=== PATIENT | female | born 1970 | race African-American/Black ===

== ENCOUNTER 2019-06-13 17:36 | Emergency (ER) | payer OTHER ==
[2019-06-13] MEDS ORDERED: TETRACAINE HCL 0.5% OPH SOLN 4 ML OU ONE (17:48)
--- NOTE | 2019-06-13 17:51 | ER Document Report ---
ED Medical Screen (RME) - General Chief Complaint: Eye Pain Stated Complaint: EYE PAIN Time Seen by Provider: 06/13/19 17:43 Primary Care Provider: RJ DELEON [Primary Care Provider] - Follow up as needed - [facility] Notes: 06/13/19 17:50 49-year-old female to the emergency department with complaints of bilateral eye pain that has gotten progressively worse today. She states that she awoke this morning with some eye pain and so she decided to go back to sleep. She states when she woke again she had significant eye pain and felt like she could not open her eyes. She states that she has photophobia with it. She states she has uncontrollable tearing with it. She states that is better if she keeps her eyes closed. She states that she typically wears glasses but last night she wore a pair fashion contacts to color her eyes. She states she did not sleep in them. I performed a brief medical screening exam on the patient determined that she will need further evaluation and management by me inside provider. I placed initial orders to help desk intern in expediting her care today. - Related Data Allergies/Adverse Reactions: No Known Drug Allergies Allergy (Verified 09/10/12 15:32) Past Medical History Past Surgical History: Reports: Hx Section - x3 Physical Exam - Vital signs Vitals: Temp Pulse Resp BP Pulse Ox 98.0 F 86 16 156/96 H 99 06/13/19 17:40 06/13/19 17:40 06/13/19 17:40 06/13/19 17:40 06/13/19 17:40 Course - Vital Signs Vital signs: Temp Pulse Resp BP Pulse Ox 98.0 F 86 16 156/96 H 99 06/13/19 17:40 06/13/19 17:40 06/13/19 17:40 06/13/19 17:40 06/13/19 17:40 Doctor's Discharge - Discharge Referrals: RJ DELEON [Primary Care Provider] - Follow up as needed
[2019-06-13] MEDS ORDERED: CIPROFLOXACIN HCL 0.3% OPH SOLN 2.5 ML OU ONE (21:36)
[2019-06-13] MEDS ORDERED: KETOROLAC TROMETHAMINE 0.45% 4 DROP/0.4 ML DROPERETTE OU ONE (21:37)
[2019-06-13] MEDS ORDERED: MINERAL OIL/PETROLATUM,WHITE OPH OINT 3.5 GM OU ONE (21:43)
[2019-06-13] MEDS ORDERED: HYDROCODONE/ACETAMINOPHEN 5-325 MG (6 TAB/ER DISP) PO PRN (21:43)
--- NOTE | 2019-06-13 22:00 | ER Document Report ---
Entered by LYNNETTE HOLLINGSWORTH SCRIBE 06/13/192110 Acting as scribe for:LUIS SHETTY IV, MD ED Eye Complaint - General Chief Complaint: Eye Pain Stated Complaint: EYE PAIN Time Seen by Provider: 06/13/19 17:43 Primary Care Provider: XI MOORE DO [ACTIVE STAFF] - 06/15/19 RJ DELEON [NO LOCAL MD] - Follow up as needed Mode of Arrival: Ambulatory Information source: Patient Notes: This 49 year old female patient presents to the ED today with complaints of bilateral eye pain and redness that began sometime this morning prior to arri rich. Patient states that when she woke up this morning initially she did not have any pain, but when she woke up a second time, she had blurry vision, pain, photophobia, and tearing. Patient states that the pain was better when she closed her eyes. Patient states that she usually wears glasses, but decided to wear fashion contact lenses to change her eye color last night. Patient notes that she has worn contact lenses before, but that yesterday was the first time using that brand of lenses. Patient states that she did not sleep with the contacts in her eyes. TRAVEL OUTSIDE OF THE [place] IN LAST 30 DAYS: No - Related Data Allergies/Adverse Reactions: No Known Drug Allergies Allergy (Verified 09/10/12 15:32) Past Medical History - General Information source: Patient - Social History Smoking Status: Never Smoker Cigarette use (# per day): No Chew tobacco use (# tins/day): No Smoking Education Provided: No Frequency of alcohol use: Occasional Drug Abuse: None Family History: Reviewed & Not Pertinent, CAD, DM, Hyperlipidemia, Hypertension Patient has suicidal ideation: No Patient has homicidal ideation: No Past Surgical History: Reports: Hx Section - x3 Review of Systems - Review of Systems Constitutional: No symptoms reported EENT: See HPI, Eye pain, Blurred vision, Tearing, Other - Photophobia Cardiovascular: No symptoms reported Respiratory: No symptoms reported Gastrointestinal: No symptoms reported Genitourinary: No symptoms reported Female Genitourinary: No symptoms reported Musculoskeletal: No symptoms reported Skin: No symptoms reported Hematologic/Lymphatic: No symptoms reported Neurological/Psychological: No symptoms reported -: Yes All other systems reviewed and negative Physical Exam - Vital signs Vitals: Temp Pulse Resp BP Pulse Ox 98.0 F 86 16 156/96 H 99 06/13/19 17:40 06/13/19 17:40 06/13/19 17:40 06/13/19 17:40 06/13/19 17:40 - General General appearance: Alert - HEENT Head: Normocephalic, Atraumatic Eyes: Normal, Other - No cell, flare, or hyphema present bilaterally. Negative [place]'s bilaterally. Ocular movements intact bilaterally. Conjunctiva: Injected - Bilaterally Cornea: Flourescein stain uptake - Right eye Pupils: PERRL - Respiratory Respiratory status: No respiratory distress Chest status: Nontender Breath sounds: Normal Chest palpation: Normal - Cardiovascular Rhythm: Regular Heart sounds: Normal auscultation Murmur: No - Abdominal Inspection: Normal Distension: No distension Bowel sounds: Normal Tenderness: Nontender Organomegaly: No organomegaly - Back Back: Normal, Nontender - Extremities General upper extremity: Normal inspection General lower extremity: Normal inspection - Neurological Neuro grossly intact: Yes - Psychological Associated symptoms: Normal affect, Normal mood - Skin Skin Temperature: Warm Skin Moisture: Dry Skin Color: Normal Course - Re-evaluation Re-evalutation: 06/13/19 21:50 This MD performed a slit lamp exam using tetracaine and floor seen. The exam was significant for a regular "wavy" appearance and positive fluorescein uptake of the right cornea in a stippling pattern. Negative Marcelo's bilaterally. Results of ED MSE and diagnosis discussed with patient. All questions answered prior to discharge. When asked if everything about the patient's visit to the ED today was explained in a manner in which she understood, patient answered in the affirmative. Emergency signs and symptoms, reasons to return to the ED discussed with the patient. - Vital Signs Vital signs: Temp Pulse Resp BP Pulse Ox 98.0 F 86 16 156/96 H 99 06/13/19 17:40 06/13/19 17:40 06/13/19 17:40 06/13/19 17:40 06/13/19 17:40 Discharge - Discharge Clinical Impression: Corneal abrasion due to contact lens Qualifiers: Laterality: right Qualified Code(s): H18.821 - Corneal disorder due to contact lens, right eye Condition: Good Disposition: HOME, SELF-CARE Additional Instructions: Return to the Emergency Department without delay if any worse. HOME CARE INSTRUCTIONS & INFORMATION: Thank you for choosing us for your medical needs. We hope you're satisfied with the care you received. After you leave, you must properly care for your problem and, at the same time, observe its progress. Any condition can change. Some illnesses can change rapidly over hours or days. If your condition worsens, return to the Emergency Department or see your physician promptly. ABOUT YOUR X-RAYS AND EKG'S: If you had an EKG or X-rays taken, they have been read by the Emergency Physician. The X-rays and EKG's will also be read by a Radiologist or Rail Splitter within 24 hours. If discrepancies are noted, you will be notified by telephone. Please be certain the ED has a correct telephone number & address where you can be reached. Also, realize that some fractures or abnormalities do not show up on initial X-rays. If your symptoms continue, see your physician. ABOUT YOUR LABORATORY TEST: If you had laboratory tests, the results have been reviewed by the Emergency Physician. Some test results (for example cultures) may not be available for several days. You will be contacted if any test result shows you need additional treatment. Please be certain the ED has a correct telephone number and address where you can be reached. ABOUT YOUR MEDICATIONS: You will receive instructions on how to take your medicine on the prescription label you receive. Additional information may be provided by the Pharmacy. If you have questions afterwards, call the ED for clarification or further instructions. Some prescribed medications may cause drowsiness. Do not perform tasks such as driving a car or operating machinery without consulting your Pharmacist. If you feel you need a refill of pain medication, your condition will need re-evaluation. Please do not call for a refill of any medication. ABOUT YOUR SIGNATURE: Signature of this document acknowledges to followin. Understanding that you received emergency treatment and that you may be released before al medical problems are known or treated. Please be certain the ED has a correct phone number & address where you can be reached. 2. Acknowledgement that you will arrange for follow-up care as recommended. 3. Authorization for the Emergency Physician to provide information to your follow-up Physician in order to maximize your care. AT ANY TIME, IF YOUR SYMPTOMS CHANGE SIGNIFICANTLY OR WORSEN OR YOU DEVELOP NEW SYMPTOMS, RETURN TO THE EMERGENCY DEPARTMENT IMMEDIATELY FOR RE-EVALUATION. OUR GOAL IS TO PROVIDE EXCELLENT MEDICAL CARE! WE HOPE THAT WE HAVE MET YOUR EXPECTATIONS DURING YOUR EMERGENCY DEPARTMENT VISIT AND THAT YOU FEEL YOU HAVE RECEIVED EXCELLENT CARE! Prescriptions: Ketorolac Tromethamine [Acular Ls] 1 drop OU PRN PRN 4 Days #5 ml PRN Reason: Referrals: PANCHO,NO [NO LOCAL MD] - Follow up as needed XI MOORE DO [ACTIVE STAFF] - 06/15/19 I personally performed the services described in the documentation, reviewed and edited the documentation which was dictated to the scribe in my presence, and it accurately records my words and actions.
[2019-06-13 23:11] VITALS: BP 129/86
== END 2019-06-13 23:05 | disposition home or self-care (01) ==
LOC: ER 17:36
DX: H18.821 Corneal disorder due to contact lens, right eye (principal); H57.13 Ocular pain, bilateral
CPT/HCPCS: 99283; J3490 ×2

== ENCOUNTER 2020-03-01 08:32 | Emergency (ER) | payer OTHER ==
[2020-03-01 08:43] VITALS: BP 124/82
--- NOTE | 2020-03-01 10:17 | ER Document Report ---
ED Medical Screen (RME) - General Chief Complaint: Abdominal Pain Stated Complaint: CONSTIPATION Time Seen by Provider: 03/01/20 10:07 TRAVEL OUTSIDE OF THE [place] IN LAST 30 DAYS: No - HPI Notes: 03/01/20 10:15 50-year-old female with a history of constipation presents emergency room for abdominal pain that has been occurring for the last 5 days. Patient reports her last bowel movement was 5 days ago, she has since used enema suppository while taking daily Linzess for constipation without any bowel movement or passing any flatus. Patient states that she did have a blood clot, yesterday. Patient s tates she has urge to defecate but only blood came out. Reports she did have a colonoscopy done a year ago. They did find a couple polyps but that was removed. Denies any nausea vomiting, chest pain shortness of breath, fever or chills. Patient states she typically has a bowel movement daily. I have greeted and performed a rapid initial assessment of this patient. A comprehensive ED assessment and evaluation of the patient, analysis of test results and completion of the medical decision making process will be conducted by additional ED providers. PHYSICAL EXAMINATION: GENERAL: Well-appearing, well-nourished and in no acute distress. CV: s1, s2 regular LUNGS: No respiratory distress abd: distented, semi hard, tenderness in epigastric and LLQ abd pain, no cva tenderness appreciated bilaterally - Related Data Allergies/Adverse Reactions: acetaminophen [From Percocet] Allergy (Verified 03/01/20 10:07) No Known Drug Allergies Allergy (Verified 09/10/12 15:32) oxycodone [From Percocet] Allergy (Verified 03/01/20 10:07) Home Medications: montelukast. sertraline Past Medical History - Social History Chew tobacco use (# tins/day): No Frequency of alcohol use: Occasional Drug Abuse: None Past Surgical History: Reports: Hx Section - x3 Physical Exam - Vital signs Vitals: Temp Pulse BP Pulse Ox 98.5 F 98 124/82 97 03/01/20 08:42 03/01/20 08:42 03/01/20 08:42 03/01/20 08:42 Course - Vital Signs Vital signs: Temp Pulse Resp BP Pulse Ox 98.5 F 98 124/82 97 03/01/20 08:42 03/01/20 08:42 03/01/20 08:42 03/01/20 08:42
[2020-03-01 10:37] LABS: ABSOLUTE EOSINOPHILS # (AUTO) 0.1 10^3/uL (0.0-0.6); ABSOLUTE LYMPHOCYTES (AUTO) 1.6 10^3/uL (0.5-4.7); ABSOLUTE MONOCYTES (AUTO) 0.5 10^3/uL (0.1-1.4); ABSOLUTE NEUT (AUTO) 4.3 10^3/uL (1.7-8.2); BASOPHILS % (AUTO) 0.4 % (0-2); EOSINOPHILS % (AUTO) 1.4 % (0-6); HEMATOCRIT 40.4 % (36.0-47.0); HEMOGLOBIN 14.3 g/dL (12.0-15.5); LYMPHOCYTES % (AUTO) 24.3 % (13-45); MEAN CORPUSCULAR HEMOGLOBIN 31.5 pg (27.0-33.4); MEAN CORPUSCULAR HGB CONC 35.4 g/dL (32.0-36.0); MEAN CORPUSCULAR VOLUME 89 fl (80-97); MONOCYTES % (AUTO) 7.5 % (3-13); PLATELET COUNT 302 10^3/uL (150-450); RED BLOOD COUNT 4.53 10^6/uL (3.72-5.28); RED CELL DISTRIBUTION WIDTH 13.4 % (11.5-14.0); SEGMENTED NEUTROPHILS % (AUTO) 66.4 % (42-78); TOTAL CELLS COUNTED % (AUTO) 100 %; WHITE BLOOD COUNT 6.5 10^3/uL (4.0-10.5)
--- NOTE | 2020-03-01 11:00 | RADIOLOGY REPORT (SQ) ---
EXAM DESCRIPTION: ACUTE ABDOMEN SERIES IMAGES COMPLETED DATE/TIME: 03/01/2020 10:50 am REASON FOR STUDY: no bm or flatus x 5 days, fer blood x1d ago COMPARISON: None. NUMBER OF VIEWS: Three views. TECHNIQUE: Frontal chest, supine abdomen and upright/decubitus abdomen radiographic images acquired. LIMITATIONS: None. FINDINGS: CHEST: Lungs clear of infiltrates. FREE AIR: None. No abnormal gas collections. BOWEL GAS PATTERN: A few dilated loops of small bowel in the midabdomen with air-fluid levels. Stool in the rectum. CALCIFICATIONS: No suspicious calcifications. HARDWARE: None in the abdomen. SOFT TISSUES: No gross mass or suggestion of organomegaly. BONES: No acute fracture. No worrisome bone lesions. OTHER: No other significant finding. IMPRESSION: POSSIBLE DEVELOPING BOWEL OBSTRUCTION. CONSIDER FOLLOW-UP CT OF THE ABDOMEN AND PELVIS. TECHNICAL DOCUMENTATION: JOB ID: [id number] 2010 [employer]- All Rights Reserved Reading location - IP/workstation name: [email or web address]
[2020-03-01 11:03] LABS: ALBUMIN 4.7 g/dL (3.5-5.0); ALKALINE PHOSPHATASE 82 U/L (38-126); ANION GAP 9 (5-19); ASPARTATE AMINO TRANSFERASE 32 U/L (14-36); BILIRUBIN,DIRECT 0.2 mg/dL (0.0-0.4); BLOOD UREA NITROGEN 16 mg/dL (7-20); CARBON DIOXIDE 30 mmol/L (22-30); CHLORIDE 99 mmol/L (98-107); GLUCOSE 111 mg/dL (75-110); POTASSIUM 4.6 mmol/L (3.6-5.0); TOTAL PROTEIN 8.3 g/dL (6.3-8.2)
--- NOTE | 2020-03-01 13:17 | ER Document Report ---
ED General - General Chief Complaint: Abdominal Pain Stated Complaint: CONSTIPATION Time Seen by Provider: 03/01/20 10:07 Mode of Arrival: Ambulatory Information source: Patient Notes: 50-year-old female patient presenting to the emergency department chief complaint of abdominal pain and no bowel movement for the last 5 days. Patient reports chronic constipation, states that she usually takes Linzess. When she takes her Linzess she has a bowel movement daily. She reports a history of ir ritable bowel syndrome. She denies any nausea or vomiting. She states she has had bright red blood in the toilet after straining. She does have a history of hemorrhoids. She has had a x3, uterine fibroids removed and no other surgeries. Last oral intake was at 9 PM. Patient is passing gas. TRAVEL OUTSIDE OF THE [place] IN LAST 30 DAYS: No - Related Data Allergies/Adverse Reactions: No Known Drug Allergies Allergy (Verified 09/10/12 15:32) oxycodone [From Percocet] Allergy (Verified 03/01/20 10:07) Home Medications: montelukast. sertraline Past Medical History - General Information source: Patient - Social History Smoking Status: Never Smoker Chew tobacco use (# tins/day): No Frequency of alcohol use: Occasional Drug Abuse: None Family History: Reviewed & Not Pertinent, CAD, DM, Hyperlipidemia, Hypertension Patient has homicidal ideation: No GI Medical History: Reports: Hx Irritable Bowel Past Surgical History: Reports: Hx Section - x3 - Immunizations Immunizations up to date: Yes Review of Systems - Review of Systems Gastrointestinal: Abdominal pain, Constipation. denies: Nausea, Vomiting -: Yes All other systems reviewed and negative Physical Exam - Vital signs Vitals: Temp Pulse BP Pulse Ox 98.5 F 98 124/82 97 03/01/20 08:42 03/01/20 08:42 03/01/20 08:42 03/01/20 08:42 - Notes Notes: PHYSICAL EXAMINATION: GENERAL: Well-appearing, well-nourished and in mild distress. HEAD: Atraumatic, normocephalic. EYES: Pupils equal round and reactive to light, extraocular movements intact, conjunctiva are normal. ENT: Nares patent, oropharynx clear without exudates. Moist mucous membranes. NECK: Normal range of motion, supple without lymphadenopathy LUNGS: Breath sounds clear to auscultation bilaterally and equal. No wheezes rales or rhonchi. HEART: Regular rate and rhythm without murmurs ABDOMEN: Firm, tender, mildly distended abdomen. Female : No CVA tenderness. Musculoskeletal: Normal range of motion, no pitting or edema. No cyanosis. NEUROLOGICAL: Cranial nerves grossly intact. Normal speech, normal gait. Normal sensory, motor exams PSYCH: Normal mood, normal affect. SKIN: Warm, Dry, normal turgor, no rashes or lesions noted. Course - Re-evaluation Re-evalutation: 03/01/20 13:39 Laboratory 03/01/20 03/01/20 10:23 10:23 WBC 6.5 RBC 4.53 Hgb 14.3 Hct 40.4 MCV 89 MCH 31.5 MCHC 35.4 RDW 13.4 Plt Count 302 Lymph % (Auto) 24.3 Wells % (Auto) 7.5 Eos % (Auto) 1.4 Baso % (Auto) 0.4 Absolute Neuts (auto) 4.3 Absolute Lymphs (auto) 1.6 Absolute Monos (auto) 0.5 Absolute Eos (auto) 0.1 Absolute Basos (auto) 0.0 Seg Neutrophils % 66.4 Sodium 138.1 Potassium 4.6 Chloride 99 Carbon Dioxide 30 Anion Gap 9 BUN 16 Creatinine 0.80 Est GFR ( Amer) > 60 Est GFR (MDRD) Non-Af > 60 Glucose 111 H Calcium 10.0 Total Bilirubin 1.0 Direct Bilirubin 0.2 Neonat Total Bilirubin Not Reportable Neonat Direct Bilirubin Not Reportable Neonat Indirect Bili Not Reportable AST 32 ALT 26 Alkaline Phosphatase 82 Total Protein 8.3 H Albumin 4.7 Lipase 95.3 Acute Abdomen Series 03/01/20 10:14 IMPRESSION: POSSIBLE DEVELOPING BOWEL OBSTRUCTION. CONSIDER FOLLOW-UP CT OF THE ABDOMEN AND PELVIS. CT abdomen pelvis with IV and oral contrast was added to evaluate possible developing bowel obstruction. Thankfully the patient is passing gas and has not had any nausea or vomiting. Morphine and Zofran ordered for pain. 03/01/20 19:37 Thankfully the CAT scan did not show any acute findings. There is no bowel obstruction. Patient has significant stool burden. She was given a soapsuds enema with mineral oil and had excellent results. She does have some external hemorrhoids that are irritated, she will be prescribed Anusol. - Vital Signs Vital signs: Temp Pulse Resp BP Pulse Ox 98.5 F 98 124/82 97 03/01/20 08:42 03/01/20 08:42 03/01/20 08:42 03/01/20 08:42 - Laboratory Result Diagrams: 03/01/20 10:23 03/01/20 10:23 Laboratory results interpreted by me: 03/01/20 03/01/20 10:23 13:39 Glucose 111 H Total Protein 8.3 H Urine Protein 30 H Urine Ketones TRACE H Discharge - Discharge Clinical Impression: Constipation Qualifiers: Constipation type: unspecified constipation type Qualified Code(s): K59.00 - Constipation, unspecified Condition: Stable Disposition: HOME, SELF-CARE Additional Instructions: Please continue taking your constipation medications as prescribed by your specialist. Return if any new or worsening concerns. Make sure to drink plenty of fluids to rehydrate yourself and to pull water into the colon as this will also help prevent constipation. Prescriptions: Phenylephrine HCl [Anusol Suppository] 1 supp.rect AR BID #[id number] supp.rect Forms: Return to Work
[2020-03-01] MEDS ORDERED: MORPHINE SULFATE 10 MG/ML INJ IV ONE (13:29)
[2020-03-01] MEDS ORDERED: ONDANSETRON HCL INJ/PF 4 MG/2 ML SDV IV ONE (13:29)
[2020-03-01 14:24] LABS: APPEARANCE,URINE CLEAR; BILIRUBIN,URINE NEGATIVE (NEGATIVE); COLOR,URINE YELLOW; GLUCOSE, URINE NEGATIVE (NEGATIVE); KETONES,URINE TRACE mg/dL (NEGATIVE); LEUKOCYTE ESTERASE,URINE NEGATIVE (NEGATIVE); NITRITE,URINE NEGATIVE (NEGATIVE); PROTEIN,URINE 30 mg/dL (NEGATIVE); URINE SPECIFIC GRAVITY 1.023; UROBILINOGEN,URINE NEGATIVE mg/dL (<2.0)
--- NOTE | 2020-03-01 16:55 | RADIOLOGY REPORT (SQ) ---
EXAM DESCRIPTION: CT ABD/PELVIS WITH IV ORAL IMAGES COMPLETED DATE/TIME: 03/01/2020 4:37 pm REASON FOR STUDY: eval for obstruction COMPARISON: KUB dated 03/01/2020. TECHNIQUE: CT scan of the abdomen and pelvis performed with intravenous and oral contrast using talia curt scanning technique with dynamic intravenous contrast injection. Images reviewed with lung, soft t issue, and bone windows. Reconstructed coronal and sagittal MPR images reviewed. Delayed images for e valuation of the urinary system also acquired. All images stored on PACS. All CT scanners at this facility use dose modulation, iterative reconstruction, and/or weight based d osing when appropriate to reduce radiation dose to as low as reasonably achievable (ALARA). [facility]: Dose Right [facility]: CareDose [facility]: Dose Right [facility]: Teradose 4D [facility]: Codasip CONTRAST TYPE AND DOSE: contrast/concentration: Isovue 350.00 mmol/ml; Total Contrast Delivered: 83. 0 ml; Total Saline Delivered: 36.9 ml RENAL FUNCTION: BUN 16 creatinine 0.8. RADIATION DOSE: CT Rad equipment meets quality standard of care and radiation dose reduction techniq ues were employed. CTDIvol: 7.1 - 9.6 mGy. DLP: 851 mGy-cm.. LIMITATIONS: None. FINDINGS: LOWER CHEST: No significant findings. No nodules or infiltrates. LIVER: Normal size. No masses. No dilated ducts. SPLEEN: Normal size. No focal lesions. PANCREAS: No masses. No significant calcifications. No adjacent inflammation or peripancreatic fluid collections. Pancreatic duct not dilated. GALLBLADDER: No identified stones by CT criteria. No inflammatory changes to suggest cholecystitis. ADRENAL GLANDS: No significant masses or asymmetry. RIGHT KIDNEY AND URETER: No solid masses. No significant calcification. No hydronephrosis or hydroure ter. LEFT KIDNEY AND URETER: No solid masses. No significant calcification. No hydronephrosis or hydrouret er. AORTA AND VESSELS: No aneurysm. No dissection. Renal arteries, SMA, celiac without stenosis. RETROPERITONEUM: No retroperitoneal adenopathy, hemorrhage or masses. BOWEL AND PERITONEAL CAVITY: Oral contrast is present in the stomach and in the small bowel which is not dilated. No obstruction. Gas and fluid in the colon. Large amount of stool in the rectum. No visualized masses. No free fluid. No inflammatory changes or thickening of bowel wall. APPENDIX: Not visualized. PELVIS: No significant masses. Distended urinary bladder. No free fluid. ABDOMINAL WALL: No masses. No hernias. BONES: No significant or acute findings. OTHER: No other significant finding. IMPRESSION: 1. NO EVIDENCE OF SMALL BOWEL OBSTRUCTION. THE SLIGHTLY DILATED BOWEL LOOPS ON THE KUB ARE GAS AND F LUID IN THE COLON. THERE IS A LARGE AMOUNT OF STOOL IN THE RECTUM AND THIS COULD INDICATE A FECAL IM PACTION. 2. DISTENDED URINARY BLADDER. PRESUMABLY BECAUSE THE PATIENT HAS NOT VOIDED RECENTLY. CORRELATE CLI NICALLY TO ENSURE THAT THERE IS NO INDICATION OF BLADDER OUTLET OBSTRUCTION. 3. NO OTHER SIGNIFICANT OR ACUTE FINDINGS IN THE ABDOMEN OR PELVIS. TECHNICAL DOCUMENTATION: JOB ID: [id number] Quality ID # [id number]: Final reports with documentation of one or more dose reduction techniques (e.g., Au tomated exposure control, adjustment of the mA and/or kV according to patient size, use of iterative reconstruction technique) 2010 [employer]- All Rights Reserved Reading location - IP/workstation name: [email or web address]
[2020-03-01] MEDS ORDERED: MAGNESIUM CITRATE 296 ML BOTTLE PO ONE (17:17)
[2020-03-01] MEDS ORDERED: MINERAL OIL 30 ML UDCUP PR ONE ×2 (17:17→18:01)
== END 2020-03-01 19:44 | disposition home or self-care (01) ==
LOC: ER 08:32
DX: K59.00 Constipation, unspecified (principal); R10.9 Unspecified abdominal pain
CPT/HCPCS: 99285; 96374; 96375; 36415; 83690; 85025; 81025; 80053; 81001; 74022; 74177; J3490 ×2; J2270; J2405